=== PATIENT | female | born 1975 | race Caucasian/White ===

== ENCOUNTER 2021-02-09 08:57 | Emergency (ER) | payer OTHER ==
[~2021-02-09] VITALS: Ht 157.5 cm; Wt 47.2 kg
--- NOTE | 2021-02-09 09:01 | NUR ---
called for triage not in the waiting room.
--- NOTE | 2021-02-09 09:05 | NUR ---
CALLED TO TRIAGE,WENT TO GET FOOD PER ADMITTING
--- NOTE | 2021-02-09 09:10 | NUR ---
called for triage not in the waiting room.
[2021-02-09 09:14] VITALS: BP 146/69
[2021-02-09] MEDS ORDERED: AZIT250T13 PO (09:18)
--- NOTE | 2021-02-09 09:23 | NUR ---
Patient discharged to home in stable condition. Written and verbal after care instructions given. Patient verbalizes understanding of instruction.
== END 2021-02-09 09:23 | disposition home or self-care (01) ==
LOC: ER 09:21
DX: J02.9 Acute pharyngitis, unspecified (principal); Z88.0 Allergy status to penicillin